=== PATIENT | male | born 1980 | race Caucasian/White ===

== ENCOUNTER 2018-09-29 11:37 | Emergency (ER) | payer BC ==
[~2018-09-29] VITALS: Ht 172.7 cm; Wt 90.7 kg
[2018-09-29] MEDS ORDERED: ACCUNEB SO1.25 MG/1 INH (11:56)
[2018-09-29 12:16] LABS: HEMATOCRIT 44.7 % (42.0-52.0); HEMOGLOBIN 15.2 gm/dL (14.0-18.0); MCH 29.8 pg (26.0-34.0); MCHC 34.1 g/dL (28.0-37.0); MCV 87.5 fL (80.0-100.0); MPV 8.1 fl. (7.2-11.1); NUCLEATED RBCS 0 /100WBC; PLATELET COUNT* 197 thou/uL (150-400); RBC 5.11 mil/uL (4.50-6.00); WBC 9.8 thou/uL (4.0-11.0)
[2018-09-29 12:23] LABS: CALCIUM 8.5 mg/dL (8.5-10.1); CREATININE 1.2 mg/dL (0.6-1.3); POTASSIUM 3.9 mmol/L (3.5-5.1)
[2018-09-29 12:27] LABS: ALBUMIN 3.7 g/dL (3.4-5.0); TOTAL BILIRUBIN 0.4 mg/dL (<0.1-1.0); TOTAL PROTEIN 7.1 g/dL (6.4-8.2)
[2018-09-29 12:34] LABS: ABSOLUTE EOSINOPHILS 0.2 thou/uL (0.0-0.7); ABSOLUTE MONOCYTES 0.4 thou/uL (0.0-1.2); ABSOLUTE NEUTROPHILS 8.2 thou/uL (1.6-8.1); PLATELET ESTIMATE ADEQUATE
[2018-09-29 12:35] LABS: ANISOCYTOSIS 1+; POIKILOCYTOSIS 1+
[2018-09-29 13:25] LABS: URINE BILIRUBIN NEGATIVE (Negative); URINE BLOOD NEGATIVE (Negative); URINE CLARITY CLEAR; URINE COLOR YELLOW; URINE GLUCOSE-RANDOM NEGATIVE (Negative); URINE KETONES NEGATIVE (Negative); URINE LEUKOCYTES-REFLEX NEGATIVE (Negative); URINE NITRITE-REFLEX NEGATIVE (Negative); URINE PROTEIN NEGATIVE (Negative); URINE SPECIFIC GRAVITY 1.025 (1.005-1.030); URINE UROBILINOGEN 0.2 E.U./dl (0.2-1.0)
[2018-09-29] MEDS ORDERED: DOXYCYCLINE 10100 M1 PO (15:48)
[2018-09-29] MEDS ORDERED: ZOFRAN4 MG PO (15:51)
[2018-09-29 16:07] VITALS: BP 108/74
== END 2018-09-29 16:10 | disposition home or self-care (01) ==
LOC: M.ERS 11:37
PROVIDERS: Nurse Practitioner Family
DX: R11.2 Nausea with vomiting, unspecified (principal); R19.7 Diarrhea, unspecified; J01.90 Acute sinusitis, unspecified; K62.5 Hemorrhage of anus and rectum; J45.909 Unspecified asthma, uncomplicated; Z88.0 Allergy status to penicillin